=== PATIENT | male | born 1960 | race Caucasian/White ===

== ENCOUNTER 2025-10-01 12:29 | Outpatient (REF) | payer SELFPAY ==
--- OUTSIDE RECORDS SUMMARY | 2025-09-18 14:00 | XMS_ITS | Encounter Summary ---
Author Organization [facility] Address [address] [place] [id number] Phone Care Team Providers Care System Dispatcher Name Role Phone Unavailable Primary Care Provider Unavailabl e Reason for Visit * ReasonCommentsCochlear Implant Evaluation Encounter Details DateTypeDepartmentCare Team (Latest Contact Info)Yaxjfwswicx67/30/2025 3:00 PM EDTClinical Support [facility] [address] [facility] [address] [place] [address] [place] [address] [place] Department of Rehabilitation Services [place] [id number] Sensorineural hearing loss (SNHL) of both ears (Primary Dx) Discharge Disposition: Home Social History Tobacco UseTypesPacks/DayYears UsedDateSmoking Tobacco: Never AssessedSex and Gender InformationValueDate RecordedSex Assigned at BirthNot on fileLegal Sex Male08/27/2025 3:19 PM EDTGender IdentityNot on fileSexual OrientationNot on filedocumented as of this encounter Progress Notes * Jesus Gay, PhD - 09/18/2025 3:00 PM EDT Images from the original note were not included. AUDIOLOGY COCHLEAR IMPLANT EVALUATION Name: Dave Vincent Fazal : 1960 Age: 65 y.o. Date of Evaluation: 09/19/25 Time: [id number] History of Present Illness Daveriki Diehl here for CI evaluation following a referral from [facility]. He has a longstanding history of bilateral sensorineural hearing loss and a history of occupationaland recreational noise exposure including firearms. He reports he subjectively hears better in his left ear and a significant subjective decrease in word understanding last year. He reports bilateral tinnitus. He states several close family members have adult onset hearing loss likely due to age ornoise exposure. He reports he has used hearing aids for 15 years and is currently using Phonak ITE's. He denies a history of ear surgery or dizziness/imbalance. Procedure Clinic loaner Phonak BTE programmed for both ears For all testing, contralateral hearing aid was turned off Soundfield audiometry - Aided pure tone Right 20-70 dB HL from 250-6000 Hz Left 15-60 dB HL from 250-6000 Hz Speech Testing Right Left CNC (60 field contractor) 4 24 AzBio (60 field contractor) 14 32 AzBio (60 field contractor, +10 dB SNR) 0 17 CI Quality of Life Questionnaire PreOp 3 months 12 months Domain Raw Score Converted Score Raw Score Converted Score Raw Score Converted Score Communication 14 20.78 Emotional 15 54.88 Entertainment 10 29.96 Environment 13 38.02 Listening Effort 5 0.0 Social 17 56.68 Global 19 31.03 Mr. Diehl was provided the cochlear implant evaluation packet / checklist. Information was provided regarding realistic expectations, aural rehabilitation, cognitive evaluation, meningitis vaccination, and the timeline of postoperative follow-up appointments. Device Selection: Mr. Diehl was provided literature about the three manufacturers of CIs, and contact information ofthe reps for each company. Device selection will be completed at an upcoming appt. Should Cochlear be the device used, EAS associate professor of biology size will be 3. Summary/Plan: - Mr. Diehl is a cochlear implant candidate in both ears and would prefer to be implanted in his right ear first. His right ear performed poorer today on aided testing. - Proceed with CI workup. He has an appointment with Chloe on 10/06/2025. Rhonda Mariano B.A. Audiology Ab Initio Etl Developer Jesus Gay., PhD., [facility]-A Pocket Builder / Casino Banker of Otolaryngology Audiogram from [facility], with 125 Hz done today using inserts. documented in this encounter Plan of Treatment DateTypeDepartmentCare Team (Latest Contact Info)Lrqjoiuxcfj41/17/2025 11:45 AM ESTOffice Visit [facility] [address] [place] [address] Sam Corona MD [address] [place], [place] [id number] 11/03/2025 9:50 AM ESTOffice Visit [facility] [address] [facility] [address] [place] [address] Tex Craig MD [address]03 [facility] 2, [address] [place] [address] documented as of this encounter Visit Diagnoses Diagnosis Sensorineural hearing loss (SNHL) of both ears- Primary documented in this encounter
--- OUTSIDE RECORDS SUMMARY | 2025-09-30 08:00 | XMS_ITS | Encounter Summary ---
Author Organization [facility] Address [address] [place] [address] Phone Care Team Providers Care Electronic Intelligence Officer Name Role Phone Jason Berman Primary Care Provider [phone] Reason for Visit * Cardiovascular (Routine) - AuthorizedSpecialtyDiagnoses / ProceduresReferred By ContactReferred To ContactCardiology Diagnoses Bradycardia, unspecified Syncope and collapse Procedures Holter Or Event Control Systems Specialist AR XTRNL PT ACTIVATED ECG RECORD MONITOR 30 DAYS AR XTRNL PT ACTIVATED ECG REC DWNLD 30 DAYS Tex Craig MD 703 [facility] [place] [facility] 2, [address] [address] Phone: tel: fax: Referral IDStatusReasonStart DateExpiration DateVisits RequestedVisits [id number]/10/202511/ Encounter Details DateTypeDepartmentCare Team (Latest Contact Info)Ofmpekxxznt03/11/2025 8:00 AM ESTAncillary Procedure [facility] [address] [address] Bradycardia, unspecified; Syncope and collapse Discharge Disposition: Home Social History Tobacco UseTypesPacks/DayYears UsedDateSmoking Tobacco: Never AssessedSex and Gender InformationValueDate RecordedSex Assigned at BirthNot on fileLegal Sex Male08/27/2025 3:19 PM EDTGender IdentityNot on fileSexual OrientationNot on filedocumented as of this encounter Functional Status * Communicable Disease ScreeningQuestionAnswerDate of AssessmentAuthorDo you have any of the following new or worsening symptoms?None of these09/30/2025 8:00 AM Zakiya Bryan documented as of this encounter Plan of Treatment DateTypeDepartmentCare Team (Latest Contact Info)Xbyeundmhmi44/17/2025 11:45 AM ESTOffice Visit [facility] [address] [place] [address] Sam Corona MD [address] [place] [address] 11/03/2025 9:50 AM ESTOffice Visit [facility] [address] [facility] [address] [place] [address] Tex Craig MD [address] [facility] 2, [address] [place] [address] NameTypePriorityAssociated DiagnosesDate/TimeHolter Or Event Control Systems Specialist Cardiac ServicesRoutine Bradycardia, unspecified Syncope and collapse 09/30/2025 8:26 AM ESTdocumented as of this encounter Visit Diagnoses Diagnosis Bradycardia, unspecified Syncope and collapse documented in this encounter Care Teams Team MemberRelationshipSpecialtyStart DateEnd Date Jason Berman [address] [place] [address] PCP - GeneralFamily Xsoyjhdt75/11/25documented as of this encounter
--- OUTSIDE RECORDS SUMMARY | 2025-10-01 05:35 | XMS_ITS | Continuity of Care Document ---
Author Organization [facility] Address [address] [place] [address] Phone Care Team Providers Care Prover Name Role Phone Jason Berman DO Primary Care Provider Jason Berman DO Attending Provider Edel Leslie Attending Provider Unavailable Josette Berman DO Emergency Provider [phone] Rolando Mckinley MD Admit Provider Rolando Mckinley MD Referring Provider Tex Craig MD Other Provider Briseida Shafer MD Other Provider [phone] Purvi Lock Other Provider Unavailable Stacie Cruz DO Other Provider [phone] Duncan Jolley MD Other Provider Vivek Hill DO Other Provider Ramin Hoskins DO Attending Provider Ramin Hoskins DO Other Provider Mecca Mtz PROFILER Other Provider Vivi Mendoza PROFILER-ABORIGINAL CEREMONIAL CELEBRANT-C Other Provider Care Teams Patient Care Team Team Status: Active Member Role/Relationship Status Dates Jason Berman DO Primary Care Provider Active Visit Care Team Team Status: Inactive Member Role/Relationship Status Dates Jason Berman DO Primary Care Provider Active Start: August 06, 2025 End: August 06, 2025Jason Berman DOAttending ProviderActiveStart: August 06, 2025 End: August 06, 2025 Visit Care Team Team Status: Active Member Role/Relationship Status Dates Jason Berman DO Primary Care Provider Active Start: September 11, 2025 Edel ManringAttending ProviderActiveStart: September 11, 2025 Visit Care Team Team Status: Active Member Role/Relationship Status Dates Josette Berman DO Emergency Provider Active Sta rt: September 27, 2025 Jason Berman DOPriwesleyy Care ProviderActiveStart: September 27, 2025 Rolando Mckinley MDAdmit ProviderActiveStart: September 27, 2025 Rolando Mckinley MDReferring ProviderActiveStart: September 27, 2025 Bridgett Dobbins ProviderActiveStart: September 27, 2025 Tex Craig MDOther ProviderActiveStart: September 27, 2025 Briseida Shafer MDOther ProviderActiveStart: September 27, 2025 Purvi Sahu ProviderActiveStart: September 27, 2025 Stacie Cruz DOOther ProviderActiveStart: September 27, 2025 Duncan Jolley MDOther ProviderActiveStart: September 27, 2025 Vivek Hill DOOther ProviderActiveStart: September 27, 2025 Ramin Hoskins DOAttending ProviderActiveStart: September 27, 2025 Ramin Hoskins DOOther ProviderActiveStart: September 27, 2025 Mecca Mtz , APRNOther ProviderActiveStart: September 27, 2025 Vivi Mendoza , RXCP-JGA-MVling ProviderActiveStart: September 27, 2025 Visit Care Team Team Status: Inactive Member Role/Relationship Status Dates Jason Berman DO Primary Care Provider Active Start: September 30, 2025 End: September 30, 2025Jason Berman DOAttending ProviderActiveStart: September 30, 2025 End: September 30, 2025 Chief Complaint and Reason for Visit Chief Complaint Admit Date Est Care August 06, 2025 10:36am Amb Documentation September 11, 2025 8 :37am Syncopal Episode September 27, 2025 6 :58pm Syncope September 30, 2025 2:23pm Reason for Visit Admit Date 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 August 06, 2025 10:36am Mixed hyperlipidemia August 06 10:36am Overweight (BMI 25.0-29.9) July 10:36am First degree AV block September 27, 2025 6:58pm 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 September 27, 2025 6:58pm Syncope September 27, 2025 6 :58pm Vasovagal syncope September 27, 2025 6 :58pm Diarrhea September 30, 2025 2:23pm First degree AV block September 30 2:23pm Hypotension September 30, 2025 2:23pm Nausea and vomiting September 30, 2025 2:23pm Overweight (BMI 25.0-29.9) September 2:23pm Vasovagal syncope September 30, 2025 2:23pm Reason for Referral Type Reason(s) Provider Provider Contact Information Sabrina seo Address Start Date outpatient [employer]- we will call you with appointment and instructions outpatient [employer]- we will call you with appointment and instructions [facility] Phone: [phone] [address] [address]QfkdqhzTex Craig MDEmail: [email or web address] Work Phone: [phone] [address] [address] have been scheduled for a follow up appointment for the following date and time, please call to reschedule if needed.Sam Clark Phone: [phone] [facility] [address] Allergies, Adverse Reactions, Alerts Allergen Type Severity Reaction Last Updated Verified Status No Known Allergies Allergy Unknown September 27, 2025 1:30pmYesActive Social History Smoking Status Status Start Date End Date Date of Observa tion Never smoked tobacco (finding) September 29, 2025 5:48pm Observation Status Observation Response Date of Response Legal Sex Male (finding) [facility] 1959 Family History Relationship Condition Age at Onset Recorded Date/T jason mother High blood cholesterol Unknown Problems Active Problems Problem Diagnosis/Recorded Date Onset Date Stat us Mixed conductive and sensori neural hearing loss August 06, 2025 10:35am Unknown Active Overweight (BMI 25.0-29.9) August 06, 2025 9:56am Unknown Active Vasovagal syncope September 29, 2025 5:58pm Unknown Active First degree AV block September 29, 2025 6:13pm Unkno wn Active Diarrhea September 30, 2025 3:02pm Unknown A ctive Mixed hyperlipidemia August 06, 2025 9:46am Unkno wn Active Syncope September 27, 2025 4:16pm Unknown Ac tive Nausea and vomiting September 30, 2025 2:31pm Unknown Active Hypotension September 30, 2025 2:30pm Unknown A ctive Medications Medication Status Dose Units Route Directions Qty Days Refills S tart Date Stop Date End Date Reason(s) Instructions Adherence [place] (No Known Home Meds) Active September 27, 2025 12:00amAtorvastatin 20 mg zwacmpHpjdckmkirtu16FJWIJixja August 05, 2025 11:00pmNov2024 1:32pm Vital Signs Vital Reading Result Reference Range Collection Date/Time Height 70 [in_i] August 06, 2025 9:13ivNqwarv69.81 kgSept2024 9:52amBody Zkftlcznwmy93.8 [degF]97.6-99.0Sept2024 9:52amHeart Rate68 /min 60-100August 06, 2025 9:52amRespiratory rate18 /ueq07-42Fetlmgklm 17th, 2025 9:52amOxygen saturation by Pulse scxoybwv92 %95-100August 06, 2025 9:52amBP Dwuzthlm013 mm[Hg]100-140Sept2024 9:52amBP Hiotwpqrp38 mm[Hg]60-100Sept2024 9:52amBMI (Body Mass Index)28.4 kg/b6Abwblynmu2024 9:39chRrctoq97 [in_i]September 27, 2025 8:70chCqqtfi56.90 kgNov2024 6:00amBody Cgutjgnqmwr81.9 [degF]97.6-99.0September 29, 2025 12:19pm Heart Rate66 /sft98-125MqtnvwwcSeptember 29, 2025 4:04pmRespiratory rate18 /tup93-21 September 29, 2025 4:04pmOxygen saturation by Pulse eswumbhl47 %95-100September 29, 2025 4:04pmBP Pqxettlt804 mm[Hg]100-140September 29, 2025 4:04pmBP Aegniwcdz56 mm[Hg]60-100September 29, 2025 4:04pmInhaled oxygen flow rate2 L/minSeptember 28, 2025 12:12wbRywzik86.5 [in_i]September 30, 2025 2:32pmWeight 90.00 kgSeptember 30, 2025 2:32pmBody Bmzuqioxdmx17.8 [degF]97.6-99.0September 30, 2025 2:32pmHeart Rate57 /lvn52-759MjjiqzqbSeptember 30, 2025 2:32pmRespiratory rate18 /dno14-77EaulziutSeptember 30, 2025 2:32pmOxygen saturation by Pulse qzihbthe60 %95-100September 30, 2025 2:32pmBP Grgfwdse613 mm[Hg]100-140September 30, 2025 2:32pmBP Cgdnwnspb14 mm[Hg]60-100September 30, 2025 2:32pmBMI (Body Mass Index)28.0 kg/p4XpionevkSeptember 30, 2025 2:32pm Advance Directives Advance Directive Response Recorded Date/ Time Advance Directives Yes July 9:23am Insurance Providers Guarantor Dave Diehl Address [address] [place] [phone] Info.Home Phone: Coverage Status Update:2025 Payer Group Member ID Coverage Type Subscriber Relationship to Subscriber Effective Date Expiration Date Medicare [id number] W Rupert Id: [id number] [address] [place] [phone] Home Phone: Email: [email or web address] Medicare Advantage [facility] [id number] W Rupert Id: [id number] [address] [place] [address] [place] [phone] Home Phone: Email: [email or web address] Encounters Encounter Location(s) Arrival/Admit Date Discharge/Departure Date Discharge/Departure Disposition Provider(s) Departed Physician/ Provider Office Visit -[facility] August 06, 2025 10:36am August 06, 2025 11:23am Discharged to home care or self care (routine discharge) Jason Berman DO Non-patient / Non-visit -[facility] September 11, 2025 8:37am [facility]-sfpxb-YktyvaiprSaint [facility]September [facility], 2025 6:58pmAda Verenice Hoskinsarted Physician/Provider Office Visit-[facility] 2024 2:23pmSeptember 30, 2025 3:07pmDischarged to home care or self care (routine discharge)Jason Berman DO Recent Diagnosis Onset Date Admit Date Mixed conductive and sensori neural hearing loss Unknown August 06, 2025 10:36am Mixed hyperlipidemia Unknown July 212024 10:36am Overweight (BMI 25.0-29.9) Unknown 2024 10:36am First degree AV block Unknown September 272024 6:58pm Mixed conductive and sensori neural hearing loss Unknown September 27, 2025 6:58pm Syncope Unknown September 27 6:58pm Vasovagal syncope Unknown September 27, 2025 6:58pm Diarrhea Unknown September 30, 2 025 2:23pm First degree AV block Unknown September 202024 2:23pm Hypotension Unknown September 30, 2 025 2:23pm Nausea and vomiting Unknown September 2:23pm Overweight (BMI 25.0-29.9) Unknown 2024 2:23pm Vasovagal syncope Unknown September 30, 2025 2:23pm Assessments Diagnosis Onset Date Resolution Status Admit Date 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 acuteSept2024 10:36amMixed hyperlipidemiaacuteSept2024 10:36amOverweight (BMI 25.0-29.9)acutept2024 10:36amFirst degree AV blockacuteNov2024 6:58pmMixed conductive and sensorineural hearing lossacuteSeptember 27, 2025 6:58pmSyncopeacuteNov2024 6:58pm Vasovagal syncopeacuteSeptember 27, 2025 6:58pmDiarrheaacuteNov2024 2:23pmFirst degree AV blockacuteSeptember 30, 2025 2:23pmHypotensionacute September 30, 2025 2:23pmNausea and vomitingacuteSeptember 30, 2025 2:23pm Overweight (BMI 25.0-29.9)acuteSeptember 30, 2025 2:23pmVasovagal syncopeacute September 30, 2025 2:23pm Plan of Treatment Author Jason [facility]Autredpt[facility] 10:35amPatient had lipid profile checked in January of this year, and total cholesterol as well as LDL slightly elevated. He has not been taking the atorvastatin consistently due to side effects. Recommended trying to push through these, and undergo lifestyle changes as listed below. We will recheck lipid profile in approximately 6 months Continue management with lifestyle modifications: ??? Reduce processed sugar and ultraprocessed foods ??? Elimination of seed oils ??? Weight control ??? Regular physical activity Discussed associated risk factors of hyperlipidemia including stroke and heart attack. Emphasized the importance of adhering to prescribed lipid lowering regimen. Discussed the increased risk of mortality due to being overweight, and the importance of weight management for overall health as well as cardiovascular risk reduction. Recommend lifestyle modification: ??? Elimination of seed oils ??? Reduction of processed sugars and ultra processed foods ??? Portion control ??? Regular exercise at least 30 minutes/day up to 5 times per week Encouraged gradual, sustainable weight loss (1 to 2 pounds per week). Reviewed potential impact on comorbid conditions such as hypertension, diabetes, and hyperlipidemia. 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 Follows with audiology as well as ENT. Currently has hearing aids in. Recommend following up with ENT in the next few weeks and will defer to their recommendations. Author Jason Berman [facility] DaytonAuthoredNovember 2024 3:05pmHeart monitor. Goes back in a month Patient was in the hospital for a couple of days due to multiple reasons. He had presumably some sort of gastroenteritis secondary to either viral or bacterial agent that led to multiple episodes of vasovagal syncope, dehydration, and subsequent persistent hypotension. He was treated with multiple IV medications and underwent extensive blood and imaging work at the hospital without a definable etiology. He currently has heart monitor and sees cardiology next month at the potential of having this effect heart arrhythmias. Today, he is still having occasional loose stools and upset stomach with some vomiting. He would like to have a stool sample taken and sent for different tests. I did gather those for him and printed them off for him to take his stool study to [place]. At this point, I do believe the most likely etiology is viral gastroenteritis, which led to vasovagal syncope secondary to dehydration and persistent hypotension. I did recommend to increase oral hydration with not only water but water filled with electrolytes. Of note, he does have a strong family history of vasovagal syncope in his mother and one of his brothers, which also presented itself later in life. I told him I would call him with the results of the stool samples and that he needs to make sure he is drinking lots of water with electrolytes. Future Tests Future scheduled test information is unavailable Pending Tests Pending diagnostic test information is unavailable Future Visits Future appointment information is unavailable Future Procedures Procedure Name Ordered Date Scheduled Date Blood Culture September 27, 2025 11:23pm 2024 11:48pm Admit Status Order September 27, 2025 3:42pm Nov ember 2024 3:42pm Consult to Cardiology September 27, 2025 3:44pm September 27, 2025 3:44pm Discharge Order September 29, 2025 6:12pm 2024 6:12pm Consult to Electrophysiology September 27, 2025 6:58pm September 27, 2025 6:58pm Consult to Neurology September 28, 2025 9:09am N ovember 2024 9:09am Calprotectin, Fecal September 30, 2025 2:58pm Clostridium [facility]icileAt[facility] Health2024 2:58pmSend Out Stool CultureTrigg [facility] Hospital 2024 2:58pmOva and Parasite PanelTrigg County Hospital 2024 2:58pm Future Medications Future medication information is unavailable Patient Instructions Instruction Admit Date Know your Meds September 27, 2025 6 :58pm
--- OUTSIDE RECORDS SUMMARY | 2025-10-01 12:37 | XMS_ITS | Encounter Summary ---
Author Organization [facility] Address [address] [place] [address] Phone Care Team Providers Care Summer Babysitter Name Role Phone Jason Berman Primary Care Provider [phone] Encounter Details DateTypeDepartmentCare Team (Latest Contact Info)Hxvqpcppanu11/08/2025Scanned Document [facility] [address] [place] [id number] Scanning, Generic Provider Social History Tobacco UseTypesPacks/DayYears UsedDateSmoking Tobacco: Never [...] Plan of Treatment DateTypeDepartmentCare Team (Latest Contact Info)Tvnmjbbjxmm83/17/2025 11:45 AM ESTOffice Visit [facility] [address] [place] [phone] Sam Corona MD [address] [place] [address] 11/03/2025 9:50 AM ESTOffice Visit [facility] [address] [facility] [address] [place] [phone] Tex Craig MD [address] [facility] [address] [place] [address] documented as of this encounter Procedures Procedure NamePriorityDate/TimeAssociated DiagnosisCommentsECHOCARDIOGRAM 09/27/2025 documented in this encounter Results * Echocardiogram (09/27/2025) Narrative 09/27/2025 Ordered by an unspecified provider. Authorizing ProviderResult TypeResult StatusGeneric Provider ScanningCV ECHO PROCEDURESFinal Result documented in this encounter Visit Diagnoses Not on filedocumented in this encounter Care Teams Team MemberRelationshipSpecialtyStart DateEnd Date Jason Berman [address] [facility] [place] [address] PCP - GeneralFamily Tusmpiim07/11/25documented as of this encounter
--- OUTSIDE RECORDS SUMMARY | 2025-10-01 12:37 | XMS_ITS | Encounter Summary ---
Author Organization [facility] Address [address] [place] [address] Phone Care Team Providers Care Inspector Advanced Composite Name Role Phone Jason Berman Primary Care Provider [phone] Encounter Details DateTypeDepartmentCare Team (Latest Contact Info)Sddlvrnspvd62/11/2025Travel Social History Tobacco UseTypesPacks/DayYears UsedDateSmoking Tobacco: Never [...] Plan of Treatment DateTypeDepartmentCare Team (Latest Contact Info)Dvalnirggcm88/17/2025 11:45 AM ESTOffice Visit [facility] [address] [place] [address] Sam Corona MD [address] [place] [address] 11/03/2025 9:50 AM ESTOffice Visit [facility] [address] [facility] [address] [place] [address] Tex Craig MD [address] [facility] 2, [address] [place] [address] documented as of this encounter Visit Diagnoses Not on filedocumented in this encounter Care Teams Team MemberRelationshipSpecialtyStart DateEnd Date Jason Berman [address] [place] [address] PCP - GeneralFamily Svppqywu67/11/25documented as of this encounter
--- OUTSIDE RECORDS SUMMARY | 2025-10-01 12:37 | XMS_ITS | Encounter Summary ---
Author Organization [facility] Address [address] [place] [address] Phone Care Team Providers Care Transit Bus Driver Name Role Phone Jason Berman Primary Care Provider [phone] Encounter Details DateTypeDepartmentCare Team (Latest Contact Info)Mkfmlplmslw03/10/2025Scanned Document [facility] [address] [place] [phone] Scanning, Generic Provider Social History Tobacco UseTypesPacks/DayYears [...] Plan of Treatment DateTypeDepartmentCare Team (Latest Contact Info)Xsmhcbwmhny08/17/2025 11:45 AM ESTOffice Visit [facility] [address] [place] [address] Sam Corona MD [address] [place] [address] 11/03/2025 9:50 AM ESTOffice Visit [facility] [address] [facility] [address] [place] [address] Tex Craig MD [address] [facility] [address] [place] [address] documented as of this encounter Visit Diagnoses Not on filedocumented in this encounter Care Teams Team MemberRelationshipSpecialtyStart DateEnd Date Jason Berman [address] [facility] [place] [address] PCP - GeneralFamily Nlfpegzj46/11/25documented as of this encounter
--- OUTSIDE RECORDS SUMMARY | 2025-10-01 12:37 | XMS_ITS | Encounter Summary ---
Author Organization [facility] Address [address] [place] [address] Care Team Providers Care Spring Tier Name Role Phone Unallocated, Noms Provider Primary Care Provi jes Encounter Details DateTypeDepartmentCare Team (Latest Contact Info)Tgtwrxoovlb41/12/2025Patient Outreach [facility] [address] [place] [address] Shweta Milligan LPN Social History Tobacco UseTypesPacks/DayYears UsedDateSmoking Tobacco: NeverSmokeless Tobacco: NeverAlcohol UseStandard Drinks/WeekCommentsYes1 (1 standard drink = 0.6 oz pure alcohol)caffeine: 1-2 cups per day coffee, [id number] Health LiteracyAnswerDate RecordedHow often do you need to have someone help you when you read instructions, pamphlets, or other written material from your doctor or pharmacy? Never01/31/2025Social Connection and Isolation PanelAnswerDate RecordedIn a typical week, how many times do you talk on the phone with family, friends, or neighbors?More than three times a week01/31/2025How often do you get together with friends or relatives?Once a week01/31/2025How often do you attend rastafarian or religion services?1 to 4 times per year01/31/2025Do you belong to any clubs or organizations such as rastafarian groups, unions, fraternal or athletic groups, or school groups?Yes01/31/2025How often do you attend meetings of the clubs or organizations you belong to?More than 4 times per year01/31/2025re you , , , , never , or living with a partner? 01/31/2025UDIT-CAnswerDate RecordedQ1: How often do you have a drink containing alcohol?Never02/10/2025Q2: How many drinks containing alcohol do you have on a typical day when you are drinking?Patient does not drink02/10/2025Q3: How often do you have six or more drinks on one occasion?Never02/10/2025Overall Financial Resource Strain (CARDIA)AnswerDate RecordedHow hard is it for you to pay for the very basics like food, housing, medical care, and heating?Not very hard 01/31/2025PHQ-2AnswerDate RecordedPatient Health Questionnaire-2 Score0 02/10/2025[facility] [place] [facility] - Occupational Stress QuestionnaireAnswerDate RecordedDo you feel stress - tense, restless, nervous, or anxious, or unable to sleep at night because yourmind is troubled all the time - these days?Only a lvemzl6001/31/2025Exercise Vital SignAnswerDate Recorded On average, how many days per week do you engage in moderate to strenuous exercise (like a brisk walk)?1 day01/31/2025On average, how many minutes do you engage in exercise at this level?30 min01/31/2025Hunger Vital SignAnswerDate RecordedWithin the past 12 months, you worried that your food would run out before you got the money to buymore.Never true01/31/2025Within the past 12 months, the food you bought just didn't last and you didn't have money to get more.Never true01/31/2025PRAPARE - TransportationAnswerDate RecordedIn the past 12 months, has lack of transportation kept you from medical appointments or from getting medications?No01/31/2025In the past 12 months, has lack of transportation kept you from meetings, work, or from getting things needed for daily living?No01/31/2025Housing Stability Vital SignAnswerDate RecordedIn the last 12 months, was there a time when you were not able to pay the mortgage or rent on time?Yes01/31/2025In the past 12 months, how many times have you moved where you were living?t any time in the past 12 months, were you homeless or living in a [place] (including now)?No01/31/2025Sex and Gender InformationValueDate RecordedSex Assigned at BirthNot on fileLegal SexMale 02/01/2023 6:43 PM EDTGender IdentityNot on fileSexual OrientationNot on file documented as of this encounter Progress Notes * Shweta Milligan LPN - 10/01/2025 10:22 AM EST <October 01, 2025, 10:22 - Shweta Milligan LPN> Called pt to complete COLE, he has switched providers due to insurance. Removed Dr Bryson as PCP. * Karthik Bryson DO - 10/01/2025 10:22 AM EST Noted, thanks documented in this encounter Plan of Treatment Not on file documented as of this encounter Visit Diagnoses Diagnosis Mixed hyperlipidemia- Primary Lumbar back pain Lumbago documented in this encounter Care Teams Team MemberRelationshipSpecialtyStart DateEnd Date Unallocated, Noms Provider, [address] [place] [address] PCP - GeneralFamily Ymsnlvph47/12/25documented as of this encounter
--- OUTSIDE RECORDS SUMMARY | 2025-10-01 12:37 | XMS_ITS ---
Author Organization [facility] Address [address] [place] [address] Care Team Providers Care Credit Card Associate Name Role Phone Unallocated, Noms Provider Primary Care Provi jes Inpatient Discharge Transitional Care Management (TCM) Status:Closed (Closed) Start date:09/29/2025 Enrollment date:09/30/2025 Enrollment reason:Identified using hospital discharge data End date:10/01/2025 Close reason:Not eligible Overview Patient discharged from [facility] on 09/29. Please contact for hospital TOCand schedule follow-up appointment within 7-14 days. NameChary Milligan LPN(Responsible Staff)Licensed Practical [phone] Continued Care and Services Coordination
--- OUTSIDE RECORDS SUMMARY | 2025-10-01 12:37 | XMS_ITS | Clinical Summary ---
Author Organization [facility] Graceful Tables [facility] tem Address [id number] [place] [address] Care Team Providers Care Transportation Security Screener Name Role Phone Unavailable Primary Care Provider Unavailabl e Allergies No known active allergies Medications MedicationSigDispense QuantityRefillsLast FilledStart DateEnd DateStatus naproxen (NAPROSYN) 500 mg tablet Take 500 mg by mouth daily.Active atorvastatin (LIPITOR) 40 mg tablet Take 40 mg by mouth daily.Active etodolac (LODINE) 400 mg tablet Take 400 mg by mouth 2 (two) times a day.Active Active Problems ProblemNoted DateDiagnosed DatePain in right hip06/08/2017 Encounters DateTypeDepartmentCare CpgyOrdbcjjukun02/05/2025 7:24 PM EDT - 08/24/2025 9:01 PM EDTEmergency [facility] [address] [place] [address] Laceration of hurtado (Primary Dx) Discharge Disposition: Home08/24/2025Travelfrom Last 3 Months Immunizations ImmunizationAdministration DatesNext YatNmon03/05/2025 Social History Tobacco UseTypesPacks/DayYears UsedDateSmoking Tobacco: NeverAlcohol UseStandard Drinks/WeekCommentsYes0 (1 standard drink = 0.6 oz pure alcohol)ChildcareAnswer Date HpuhwwygSmxzrlkgwVbisgmm06/12/2019EmploymentAnswerDate RecordedEmployment Vmwanxt7405/01/2019Hunger ScreeningAnswerDate RecordedWithin the past 12 months we worried whether our food would run out before we got money to buy more.Never True08/24/2025Within the past 12 months the food we bought just didn't last and we didn't have money to get more.Never True08/24/2025Purpose - LifeAnswerDate RecordedPurpose and direction in fvrtAbgmibm35/11/2021ex and Gender Information ValueDate RecordedSex Assigned at BirthNot on fileLegal YcaGhul3106/25/2015 11:53 AM EDTGender IdentityNot on fileSexual OrientationNot on file Last Filed Vital Signs Vital SignReadingTime TakenCommentsBlood Hhyhzdgc074/801 7:02 PM EDT Hdqzs469508/24/2025 9:01 PM NIJYsypnejdwfp68.5 ??C (97.7 ??F)08/24/2025 7:01 PM EDTRespiratory Ufbk6648 9:01 PM EDTOxygen Ivlnbpnykq93%08/24/2025 9:01 PM EDTInhaled Oxygen Concentration--Lznewo32.2 kg (190 lb)08/24/2025 7:01 PM EDT Fgmtdh573.8 cm (5' 10 )08/24/2025 7:01 PM EDTBody Mass Index27.261 7:01 PM EDT Plan of Treatment Health MaintenanceDue DateLast DoneCommentsDepression Pwzadvrqv10/22/1972Adult BMI Follow Up Plan1978Zoster (Shingles) Vaccine (2 of 2)09/12/2023 07/18/2023Fall Risk Kmdfdtsdq03/22/2025Influenza Bvqslap6607/21/2025dult BMI Uxiverbbc92Tobacco Atxgkagfs65RSV ( or age 60+ yrs) (1 - 1-dose 75+ series)2035DTaP,Tdap and Td Vaccines (2 - Td or Tdap) Medical Devices Not on file Procedures Procedure NamePriorityDate/TimeAssociated DiagnosisCommentsPM ED LACERATION SGUAXSNsltbgt75/05/2025 8:15 PM EDT from Last 3 Months Results * Laceration Repair (08/24/2025 8:15 PM EDT) Narrative Aimee Restrepo APRN-CNP - 08/24/2025 8:15 PM EDT GLORIA Randhawa 08/24/2025 10:09 PM Laceration Repair Date/Time: 08/24/2025 8:15 PM Performed by: GLORIA Randhawa Authorized by: GLORIA Randhawa ?? Consent: ??Consent obtained: ??Verbal ??Consent given by: ??Patient ??Risks, benefits, and alternatives were discussed: yes ?Risks discussed: ??Infection, pain, poor cosmetic result and poor wound healing Bells protocol: ??Procedure explained and questions answered to patient or proxy's satisfaction: yes ?Site/side marked: yes ?Immediately prior to procedure, a time out was called: yes ?Patient identity confirmed: ??Verbally with patient and arm band Anesthesia: ??Anesthesia method: ??Local infiltration ??Local anesthetic: ??Lidocaine 1% w/o epi Laceration details: ??Location: ??Leg ??Leg location: ??L lower leg ??Length (cm): ??7 Pre-procedure details: ??Preparation: ??Patient was prepped and draped in usual sterile fashion Treatment: ??Wound cleansed with: vashe. Skin repair: ??Repair method: ??Sutures ??Suture size: ??4-0 ??Suture material: ??Nylon ??Suture technique: ??Simple interrupted ??Number of sutures: ??10 Approximation: ??Approximation: ??Close Repair type: ??Repair type: ??Simple Post-procedure details: ??Procedure completion: ??Tolerated well, no immediate complications Authorizing ProviderResult TypeResult StatusAimee CASTRO PROCEDURE/MINOR SURGICAL ORDERABLESFinal Result from Last 3 Months Insurance
--- OUTSIDE RECORDS SUMMARY | 2025-10-01 12:37 | XMS_ITS | Clinical Summary ---
Author Organization [facility] Address [address] [place] [address] Care Team Providers Care Store Shopper Name Role Phone Unavailable Primary Care Provider Unavailabl e Social History Tobacco UseTypesPacks/DayYears UsedDateSmoking Tobacco: Never AssessedSex and Gender InformationValueDate RecordedSex Assigned at BirthNot on fileLegal Sex Male10/21/2012 8:27 AM ESTGender IdentityNot on fileSexual OrientationNot on file Plan of Treatment Not on file Insurance [place] [id number]
--- OUTSIDE RECORDS SUMMARY | 2025-10-01 12:37 | XMS_ITS | Encounter Summary ---
Author Organization [facility] Address [address] [place] [address] Phone Care Team Providers Care Biofuels Product Manager Name Role Phone Jason Berman Primary Care Provider [phone] Encounter Details DateTypeDepartmentCare Team (Latest Contact Info)Oghpzewclwr15/09/2025Scanned Document [facility] [address] [place] [phone] Scanning, Generic Provider Social History Tobacco UseTypesPacks/DayYears [...] Plan of Treatment DateTypeDepartmentCare Team (Latest Contact Info)Fkmpqabwnuy31/17/2025 11:45 AM ESTOffice Visit [facility] [address] [place] [address] Sam Corona MD [address] [place] [address] 11/03/2025 9:50 AM ESTOffice Visit [facility] [address] [facility] [address] [place] [address] Tex Craig MD [address] [facility] [address] [place] [address] documented as of this encounter Visit Diagnoses Not on filedocumented in this encounter Care Teams Team MemberRelationshipSpecialtyStart DateEnd Date Jason Berman [address] [facility] [place] [address] PCP - GeneralFamily Ygzxzqio86/11/25documented as of this encounter
--- OUTSIDE RECORDS SUMMARY | 2025-10-01 12:37 | XMS_ITS | Encounter Summary ---
Author Organization [facility] Address [address] [place] [address] Phone Care Team Providers Care Putty And Caulking Supervisor Name Role Phone Unavailable Primary Care Provider Unavailabl e Encounter Details DateTypeDepartmentCare Team (Latest Contact Info)Evigiwgxfer93/29/2025Travel Social History Tobacco UseTypesPacks/DayYears UsedDateSmoking Tobacco: Never AssessedSex and Gender InformationValueDate RecordedSex Assigned at BirthNot on fileLegal Sex Male08/27/2025 3:19 PM EDTGender IdentityNot on fileSexual OrientationNot on filedocumented as of this encounter Functional Status documented as of this encounter Plan of Treatment DateTypeDepartmentCare Team (Latest Contact Info)Vqgqdhzokrb91/17/2025 11:45 AM ESTOffice Visit [facility] [address] [place] [address] Sam Corona MD [address] [place] [address] 11/03/2025 9:50 AM ESTOffice Visit [facility] [address] [facility] [address] [place] [address] Tex Craig MD [address] [facility] [address] [place] [address] documented as of this encounter Visit Diagnoses Not on filedocumented in this encounter
--- OUTSIDE RECORDS SUMMARY | 2025-10-01 12:37 | XMS_ITS | Clinical Summary ---
Author Organization [facility] Address [address] [place] [address] Phone Care Team Providers Care Information Director Name Role Phone Jason Berman Primary Care Provider [phone] Allergies No known active allergies Encounters DateTypeDepartmentCare UjutJbzcasndjtg96/11/2025 8:00 AM ESTAncillary Procedure [address] [place] [address] Bradycardia, unspecified; Syncope and collapse Discharge Disposition: Home09/30/20258228Ymhunm32/10/2025Scanned Document [facility] [address] [place] [address] Scanning, Generic Provider 09/29/2025Telephone [address] [place] [address] Emma Marie RN 09/28/2025Scanned Document [facility] [address] [place] [address] Scanning, Generic Provider 09/27/2025Scanned Document [facility] [address] [place] [address] Scanning, Generic Provider 09/18/2025 3:00 PM EDTClinical Support [facility] [address] [facility] [address] [place] [address] Royer Pimentel, AuD, PhD Sensorineural hearing loss (SNHL) of both ears (Primary Dx) Discharge Disposition: Home09/17/20259909Xmvhzq89/08/2025Telephone [facility] [address] [facility] [place] [address] Lupis Paredes RN from Last 3 Months Immunizations ImmunizationAdministration DatesNext DueTdap vaccine, age 7 year and older (BOOSTRIX, ADACEL)08/24/2025Zoster vaccine, recombinant, adult (SHINGRIX) 07/18/2023 Social History Tobacco UseTypesPacks/DayYears UsedDateSmoking Tobacco: Never AssessedSex and Gender InformationValueDate RecordedSex Assigned at BirthNot on fileLegal Sex Male08/27/2025 3:19 PM EDTGender IdentityNot on fileSexual OrientationNot on file Plan of Treatment DateTypeDepartmentCare Team (Latest Contact Info)Wlnkbdfxmvf69/17/2025 11:45 AM ESTOffice Visit [facility] [address] [place] [address] Sam Corona MD [address] [facility] [address] [place] [address] 11/03/2025 9:[address] [facility] 7[address] [facility] [address] [place] [address] Tex Craig MD [address] [facility] 2[address] [place] [address] Health MaintenanceDue DateLast DoneCommentsCT Tjehuliuxyvp1960FIT-DNA (Cologuard)1960FIT1960Lipid Panel1960 6606Huffpnrfyimis1960 Welcome to Medicare Visit1960MMR Vaccines (1 of 1 - Standard series) 1961Hepatitis C Vasqueadc83/22/1978PSA Prostate Cancer Fpkfadmbs43/22/2010 Pneumococcal Vaccine (1 of 1 - PCV)2010Zoster Vaccines (2 of 2)09/12/2023 07/18/2023Influenza Vaccine (#1)2025OVID-19 Vaccine (1 - 2024- season) 07/21/20250639Xgjezicuxag83olorectal Cancer Wcmmzoeqz54/22/2031 RSV High Risk: (Elderly (60+) or Population) (1 - 1-dose 75+ series) 2035DTaP/Tdap/Td Vaccines (2 - Td or Tdap)HIB Vaccines Aged OutNo longer eligible based on patient's age to complete this topicHPV VaccinesAged OutNo longer eligible based on patient's age to complete this topic Hepatitis A VaccinesAged OutNo longer eligible based on patient's age to complete this topicHepatitis B VaccinesAged OutNo longer eligible based on patient's age to complete this topicIPV VaccinesAged OutNo longer eligible based on patient's age to complete this topicMeningococcal VaccineAged OutNo longer eligible based on patient's age to complete this topicRotavirus VaccinesAged Out No longer eligible based on patient's age to complete this topic Procedures Procedure NamePriorityDate/TimeAssociated DiagnosisCommentsECHOCARDIOGRAM 09/27/2025 from Last 3 Months Results * Echocardiogram (09/27/2025) Narrative 09/27/2025 Ordered by an unspecified provider. Authorizing ProviderResult TypeResult StatusGeneric Provider ScanningCV ECHO PROCEDURESFinal Result from Last 3 Months Insurance * Guarantor: Dave Diehl TypeRelation to PatientDate of BirthPhone Billing AddressPersonal/XeummqDgwd1960 [address] [address] Care Teams Team MemberRelationshipSpecialtyStart DateEnd Jason Berman [address] [facility] [place] [address] [facility] - [facility] Jcpiqvfa42/11/25
--- OUTSIDE RECORDS SUMMARY | 2025-10-01 12:37 | XMS_ITS | Clinical Summary ---
Author Organization [facility] Address [address] [place] [address] Care Team Providers Care Supervisor Gas Meter Repair Name Role Phone Unallocated, Noms Provider MD Primary Care Provi jes Allergies No known active allergies Medications MedicationSigDispense QuantityRefillsLast FilledStart DateEnd DateStatus atorvastatin (Lipitor) 20 MG tablet Take 20 mg by mouth Daily03/20/2018Active etodolac (Lodine) 400 MG tablet Take 400 mg by mouth in the morning and 400 mg in the evening.Active Multiple Vitamin (multivitamin) tablet Take 1 tablet by mouth DailyActive cholecalciferol (Vitamin D-3) 50 MCG (2000 UT) capsule Take 2,000 Units by mouth DailyActive Active Problems ProblemNoted DateDiagnosed DateLumbar back pain02/03/2025 Assessment & Plan (02/03/2025 3:14 PM EDT): Currently well-controlled with p.r.n. etodolac, continue Vitamin D ivfynkbifp79/17/2025 Assessment & Plan (02/10/2025 4:21 PM EDT): - History of vitamin D deficiency. - Continue vitamin D supplementation, especially during winter months. Assessment & Plan (02/03/2025 3:14 PM EDT): Patient with history of vitamin-D deficiency, on supplementation, recheck labs Orders: Vitamin D 25 hydroxy Total; Future Comprehensive metabolic panel; Future Vitamin D 25 hydroxy Total Comprehensive metabolic panel Cfrqclavvlfjbz48/17/2025 Assessment & Plan (02/10/2025 4:21 PM EDT): - LDL cholesterol slightly elevated, likely due to intermittent use of atorvastatin. - Encourage consistent use of atorvastatin to maintain LDL levels below 100. Assessment & Plan (02/03/2025 3:14 PM EDT): Patient with history of hyperlipidemia, currently on atorvastatin, recheck labs, continue current med regimen for now Orders: Comprehensive metabolic panel; Future CBC; Future Lipid panel; Future Comprehensive metabolic panel CBC Lipid panel Blood in stool02/03/2025 Assessment & Plan (02/03/2025 3:14 PM EDT): - Possible causes include hemorrhoids and diverticulosis. Previous colonoscopy in December 2020 noted diverticulosis and hemorrhoids. - Obtain the full colonoscopy report to confirm findings. If hemorrhoids are confirmed, consider increased fiber intake and possibly a cream vs suppository for treatment. Sign records release to obtain the colonoscopy report. Orders: Comprehensive metabolic panel; Future CBC; Future Comprehensive metabolic panel CBC Neszcaqkuygqmy22/17/2025 Assessment & Plan (02/03/2025 3:14 PM EDT): See above, last colonoscopy visit in chart mentioned diverticulosis so we sent records request for further details Low txdhkdbufesp08/17/2025 Assessment & Plan (02/10/2025 4:21 PM EDT): - Testosterone levels slightly low, but no symptoms of low testosterone reported. - Monitor levels; no immediate intervention required. Assessment & Plan (02/03/2025 3:14 PM EDT): Patient reports history of low testosterone, we will recheck with labs today Orders: Comprehensive metabolic panel; Future CBC; Future Testosterone, free, total; Future Comprehensive metabolic panel CBC Testosterone, free, total Dmkbpmfzumw55/17/2025 Assessment & Plan (02/03/2025 3:14 PM EDT): See above, last colonoscopy visit in chart mentioned hemorrhoids so we sent records request for further details on internal vs external Orders: Comprehensive metabolic panel; Future CBC; Future Comprehensive metabolic panel CBC Resolved Problems ProblemNoted DateDiagnosed DateResolved DateAllergic arthritis of shoulder srrjhp32ilateral wehzloed10Impacted cerumen of right earOtitis fcxbrxd62Primary localized osteoarthrosis of shoulder zzkrjr85Sensorineural hearing loss (SNHL) of both earsPain in right hip06/08/2017 08/22/2025 Encounters DateTypeDepartmentCare PyrkRtjzmbftnml27/12/2025Patient Outreach [facility] [address] [place] [address] Shweta Milligan LPN 09/02/2025Telephone [facility] [address], [facility] [address] [place] [address] Karthik Bryson DO 08/22/2025 3:45 PM EDTOffice Visit [facility] [address] [place] [address] Seamus Grijalva DO Sensorineural hearing loss (SNHL) of both ears (Primary Dx); Tinnitus, unspecified kscperfyjs26/03/2025amboo flowsheet [facility] [address] [place] [place] [address] Seamus Grijalva DO 08/22/20250769Zwxpjm78/01/2025 11:00 AM EDTOffice Visit [facility] [address] [place] [address] Monica Cruz AUD Sensorineural hearing loss, bilateral (Primary Dx)08/20/2025amboo flowsheet [facility] [address] [place] [phone] Monica Cruz, AUD 07/25/2025 3:45 PM EDTOffice Visit [facility] [address] [place] [phone] Monica Cruz, URSZULA Sensorineural hearing loss, bilateral (Primary Dx)07/25/2025amboo flowsheet [facility] [address] [place] [address] Monica Cruz, AUD 07/23/2025Telephone [facility] [address] [place] [address] Monica Cruz, AUD 07/22/2025 1:30 PM EDTOffice Visit [facility] [address] [place] [address] Monica Cruz AUD Sensorineural hearing loss, bilateral (Primary Dx); Tinnitus, uuyfvurpp73/02/2025amboo flowsheet [facility] [address] [place] [address] Monica Cruz, AUD 07/22/20251909Yypmyn30/23/2025Telephone [facility] [address] [facility] [address] Tracy Dorantes CCC-A Right aid not xwsqjqg7207/09/2025 3:45 PM EDTOffice Visit [facility] [address] [facility] [place] [phone] Monica Cruz, URSZULA Sensorineural hearing loss, bilateral (Primary Dx)07/09/2025Telephone [facility] [address] [place] [address] Tracy Dorantes, CCC-A Left HAP Phonak aidfrom Last 3 Months Immunizations ImmunizationAdministration DatesNext Tu Lamb07/18/2023 Family History Medical HistoryRelationNameCommentsBrain tumorBrother 1ProstatitisBrother 1 Kidney cancerBrother 23 brothersHypertensionFatherArba RupertHyperlipidemia MotherOsteoporosisMotherScoliosisMotherCancerSiblingThyroid diseaseSister MelanomaNeg HxRelationNameStatusCommentsBrother 1Brother 2AliveFatherArba Fazal DeceasedMotherDeceasedSiblingSister Social History Tobacco UseTypesPacks/DayYears UsedDateSmoking Tobacco: NeverSmokeless Tobacco: Never Tobacco Cessation:Counseling Given: Not Answered Alcohol UseStandard Drinks/WeekCommentsYes1 (1 standard drink = 0.6 oz pure alcohol)caffeine: 1-2 cups per day coffee, [id number] Health LiteracyAnswerDate RecordedHow often do you need [...] relatives?Once a week01/31/2025How often do you attend nondenominational or jew services?1 to 4 times per year01/31/2025Do you belong to any clubs or organizations such as nondenominational groups, unions, fraternal or athletic groups, or [...] very hard 01/31/2025PHQ-2AnswerDate RecordedPatient Health Questionnaire-2 Score0 02/10/2025[facility] - Occupational Stress QuestionnaireAnswerDate RecordedDo you feel stress - tense, restless, nervous, or anxious, or unable to sleep at night because yourmind is troubled all the time - these days?Only a vklodw2001/31/2025Exercise Vital SignAnswerDate Recorded On average, how many [...] were you homeless or living in a care home (including now)?No01/31/2025Sex and Gender InformationValueDate RecordedSex Assigned at BirthNot on fileLegal SexMale 02/01/2023 6:43 PM EDTGender IdentityNot on fileSexual OrientationNot on file Last Filed Vital Signs Vital SignReadingTime TakenCommentsBlood Imqfvlfv421/60002/10/2025 3:20 PM EDT Lzaco408602/10/2025 3:20 PM AJFSbamwibdgro36.7 ??C (98.1 ??F)02/10/2025 3:20 PM EDTRespiratory Ogky5783 3:20 PM EDTOxygen Zxrmcinkto92%02/10/2025 3:20 PM EDTInhaled Oxygen Concentration--Nxqylo90.7 kg (200 lb)08/22/2025 3:40 PM EDT Ynccca273.3 cm (5' 11 )08/22/2025 3:40 PM EDTBody Mass Index27.8908/22/2025 3:40 PM EDT Plan of Treatment Health MaintenanceDue DateLast DoneCommentsCT Wvvaowsskmnt1960FIT-DNA 1960FIT1960FOBT1960 9020Nrxkfenpksfib1960Pneumococcal Vaccine: 65+ Years (1 of - PCV)2010COVID-19 Vaccine ( - season) 2025Influenza Vaccine (#1)9674Kacvidzncfp10, 01/11/2021, 11/08/2013Colorectal Cancer Ktlvnydba31/22/2031 Procedures Procedure NamePriorityDate/TimeAssociated DiagnosisCommentsAUDITORY FUNCTION RXCPZXszaqvd65/02/2025 2:26 PM EDT COLONOSCOPY ZNKJJXPDNQRiunqim02/22/2021 3:12 PM ESTfrom Last 3 Months or Most Recently Relevant to Health Maintenance Results * Auditory function tests (07/22/2025 2:26 PM EDT) Narrative Monica Cruz AUD - 07/22/2025 2:26 PM EDT [employer] [facility] Audio indicated a moderate to profound sensorineural hearing loss, bilaterally. A significant decrease in hearing is present in both ears when compared to previous audio 03-01-2023. Authorizing ProviderResult TypeResult StatusMonica Cruz AUDAUDIOLOGY SERVICES ORDERABLESFinal Result * COLONOSCOPY DIAGNOSTIC (01/11/2021 3:12 PM EST)Anatomical RegionLaterality ModalityRadiographic Imaging Narrative Authorizing ProviderResult TypeResult StatusDaniel Braydon DOIMG XR PROCEDURES Final Result from Last 3 Months or Most Recently Relevant to Health Maintenance Insurance Care Teams Team MemberRelationshipSpecialtyStart DateEnd Date Unallocated, [facility], [address] [place] [address] PCP - GeneralFamily Qcyvuxkf03/12/25
--- OUTSIDE RECORDS SUMMARY | 2025-10-01 12:37 | XMS_ITS | Encounter Summary ---
Author Organization [facility] Address [address] [place] [address] Phone Care Team Providers Care Head Bucker Name Role Phone Jason Berman Primary Care Provider [phone] Reason for Referral * Cardiovascular (Routine) - AuthorizedSpecialtyDiagnoses / ProceduresReferred By ContactReferred To ContactCardiology Diagnoses Bradycardia, unspecified Syncope and collapse Procedures Holter Or Event Property Insurance Claims Examiner [place] XTRNL PT ACTIVATED ECG RECORD MONITOR 30 DAYS [place] XTRNL PT ACTIVATED ECG REC DWNLD 30 DAYS Tex Craig MD [address] [facility] 2, [address] [address] Phone: tel: fax: Referral IDStatusReasonStart DateExpiration DateVisits RequestedVisits [id number]/10/202511/10/202611 Encounter Details DateTypeDepartmentCare Team (Latest Contact Info)Ibvmpqgzepc2025Telephone [facility] [address] [address] Emma Marie, RN Social History Tobacco UseTypesPacks/DayYears UsedDateSmoking Tobacco: Never AssessedSex and Gender InformationValueDate RecordedSex Assigned at BirthNot on fileLegal Sex Male08/27/2025 3:19 PM EDTGender IdentityNot on fileSexual OrientationNot on filedocumented as of this encounter Functional Status * Communicable Disease ScreeningQuestionAnswerDate of AssessmentAuthorDo you have any of the following new or worsening symptoms?None of these09/30/2025 8:00 AM Zakiya Bryan documented as of this encounter Miscellaneous Notes * Telephone Encounter - Farzana Rios MA - 09/29/2025 1:04 PM EST 09-29-25 lm to call 30 day brady * Telephone Encounter - Emma Marie RN - 09/29/2025 12:19 PM EST Patient seen in Cardiac Consult at [facility] on 09/28/2025; Reason for Consult: Cardiac consultation requested for evaluation of syncope and bradycardia. Assessment 1. Several syncopal episode associated with GI symptoms of nausea vomiting and diarrhea. Very likely to be related to mild dehydration and vasovagal reaction. The patient does have a first-degree AV block and the possibility of sick sinus syndrome need to be excluded 2. History of hyperlipidemia was advised to be on treatment in the past but has not done that 3. Hard of hearing 4. BMI of 28 5. TSH was normal Plan 1. I have lengthy discussion with the patient and his family. One of his daughter is a pharmacist in [place]. We discussed the differential diagnosis of either vasovagal versus an element of sick sinus syndrome. I suggested for the time being to discontinue IV fluid, oxygen and low-dose dopamine. Monitor the patient for the next 24 hours. If no further arrhythmia it is very likely the episode wererelated to vasovagal reaction. Will plan on doing outpatient GXT and 30-day event monitor to rule out sick sinus syndrome and demonstrate normal chronotropic response to exercise the above reviewed with family at great length they all understood and agreed with the suggested plan 2. Will check lipid profile :Assessment 1. Several syncopal episode associated with GI symptoms of nausea vomiting and diarrhea. Very likely to be related to mild dehydration and vasovagal reaction. The patient does have a first-degree AV block and the possibility of sick sinus syndrome need to be excluded. No further bradycardia arrhythmia patient off dopamine. 2. History of hyperlipidemia was advised to be on treatment in the past but has not done that 3. Hard of hearing 4. BMI of 28 5. TSH was normal Plan 1. I have lengthy discussion with the patient and his family again. We discussed that the likely diagnosis is vasovagal. Will continue to monitor for symptoms. I suggested outpatient event monitor toensure no further bradycardia arrhythmia. We discussed driving privileges and I reviewed the guidelines with the patient and his at length. 2. Lipid profile noted and reviewed LDL 125 the patient does not meet the criteria for treatment documented in this encounter Plan of Treatment DateTypeDepartmentCare Team (Latest Contact Info)Zxsbnkwceue41/17/2025 11:45 AM ESTOffice Visit [facility] [address] [place] [address] Sam Corona MD [address] [place] [address] 11/03/2025 9:50 AM ESTOffice Visit [facility] [address] [facility] [address] [place] [address] Tex Craig MD [address] [facility] 2, [address] [place], [place] [id number] NameTypePriorityAssociated DiagnosesDate/TimeHolter Or Event Property Insurance Claims Examiner Cardiac ServicesRoutine Bradycardia, unspecified Syncope and collapse 09/30/2025 8:26 AM ESTNameTypePriorityAssociated DiagnosesOrder ScheduleHolter Or Event Cardiac MonitorCardiac ServicesRoutine Bradycardia, unspecified Syncope and collapse Expected: 09/29/2025 (Approximate), Expires: 09/29/2027documented as of this encounter Visit Diagnoses Diagnosis Bradycardia, unspecified Syncope and collapse documented in this encounter Care Teams Team MemberRelationshipSpecialtyStart DateEnd Date Jason Berman [address] [place] [address] PCP - GeneralFamily Xnwscwfr66/11/25documented as of this encounter
== END 2025-10-01 12:30 | disposition home or self-care (01) ==
LOC: LAB 12:29
PROVIDERS: PCP Family Medicine; Visit Provider Student in an Organized Health Care Education/Training Program
DX: R11.2 Nausea with vomiting, unspecified (principal); I95.1 Orthostatic hypotension; R19.7 Diarrhea, unspecified
CPT/HCPCS: 83993; 87045; 87046; 87177; 87209; 87427; 87493